=== PATIENT | female | born 1955 | race Caucasian/White ===

== ENCOUNTER 2019-04-28 12:15 | Inpatient (IN) | payer MEDICAID, MEDICARE ==
[~2019-04-28] VITALS: Ht 172.7 cm; Wt 62.6 kg
[2019-04-28] MEDS ORDERED: ASCO500P18 PO (12:44)
[2019-04-28] MEDS ORDERED: POLY17PO4 PO (12:44)
[2019-04-28] MEDS ORDERED: MULT1TAB73 PO (12:44)
[2019-04-28] MEDS ORDERED: MAGN400T40 PO (12:44)
[2019-04-28] MEDS ORDERED: SENN-175 PO (12:44)
[2019-04-28] MEDS ORDERED: GABA-532 PO (12:44)
[2019-04-28] MEDS ORDERED: SODI100G3 MC (12:44)
[2019-04-28] MEDS ORDERED: MIDO5TAB PO (12:44)
[2019-04-28] MEDS ORDERED: IV NORMAL SALINE 1000 ML BAG IV ONE (12:45)
[2019-04-28 12:54] LABS: BASOPHILS # (AUTO) 0.1 K/uL (0.0-8.0); BASOPHILS % (AUTO) 1.9 % (0.0-2.0); EOSINOPHILS # (AUTO) 0.1 K/uL (0.0-0.7); EOSINOPHILS % (AUTO) 1.8 % (0.0-7.0); HEMOGLOBIN 10.3 g/dL (10.9-14.3); LYMPHOCYTES # (AUTO) 2.4 K/uL (20.0-40.0); LYMPHOCYTES % (AUTO) 38.6 % (20.5-51.5); MEAN CORPUSCULAR HGB CONC 33 g/dL (32.3-35.6); MEAN CORPUSCULAR VOLUME 90.4 fL (75.5-95.3); MONOCYTES # (AUTO) 0.6 K/uL (2.0-10.0); MONOCYTES % (AUTO) 10.1 % (0.0-11.0); NEUTROPHILS # (AUTO) 2.9 K/uL (1.8-8.9); NEUTROPHILS % (AUTO) 47.6 % (38.5-71.5); PLATELET COUNT (AUTO) 409 K/uL (179-408); RED BLOOD CELL COUNT(AUTO) 3.43 MIL/uL (3.63-4.92); WHITE BLOOD COUNT (AUTO) 6.2 K/uL (3.8-11.8)
[2019-04-28 13:02] LABS: CREATININE 0.7 mg/dL (0.6-1.3); POTASSIUM 4.5 mmol/L (3.5-5.1)
[2019-04-28 13:08] LABS: BILIRUBIN,DIRECT 0.2 mg/dL (0.0-0.2); BILIRUBIN,TOTAL 0.4 mg/dL (0.2-1.0); TOTAL PROTEIN, SERUM 6.3 g/dL (6.4-8.2)
[2019-04-28] MEDS ORDERED: PROC10TA13 PO (13:15)
[2019-04-28] MEDS ORDERED: PANT40TA4 PO (13:15)
[2019-04-28] MEDS ORDERED: MORP15TA PO (13:15)
[2019-04-28] MEDS ORDERED: NITR0.4T48 SL (13:15)
[2019-04-28] MEDS ORDERED: SUCR1TAB PO (13:15)
[2019-04-28] MEDS ORDERED: BISA10SU61 RC (13:15)
[2019-04-28] MEDS ORDERED: LEVO112T5 PO (13:15)
[2019-04-28] MEDS ORDERED: ONDA4TAB5 PO (13:15)
[2019-04-28] MEDS ORDERED: ALBU2.5V38 IH (13:15)
[2019-04-28] MEDS ORDERED: HYDR-3326 PO (13:15)
[2019-04-28] MEDS ORDERED: FERR325T30 PO (13:15)
[2019-04-28] MEDS ORDERED: LORA1TAB PO (13:15)
[2019-04-28] MEDS ORDERED: [UNRECOGNIZED DRUG - OTHER] RC (13:15)
--- NOTE | 2019-04-28 13:26 | NUR ---
Call placed to [facility], Dr. Gallardo has been paged.
--- NOTE | 2019-04-28 13:44 | NUR ---
Patient is resting comfortably on gurney while watching bedside TV. NPO maintained, no acute change in condition seen.
[2019-04-28] MEDS ORDERED: SWABABLE VALVE TRANSFER SET EA MC ONE (14:06)
[2019-04-28] MEDS ORDERED: IV NORMAL SALINE 250 ML IV ONE (14:06)
[2019-04-28] MEDS ORDERED: IOHEXOL 300MG/ML 100 ML INFUS..BTL ONE (14:06)
--- NOTE | 2019-04-28 14:09 | NUR ---
"We are waiting for insurance authorization." per Le, the ER registration staff.
[2019-04-28] MEDS ORDERED: LORAZEPAM 1 MG TABLET PO PRN (14:30)
[2019-04-28] MEDS ORDERED: ALBUTEROL SULFATE 2.5 MG/3 ML NEBU IH PRN (14:30)
[2019-04-28] MEDS ORDERED: NITROGLYCERIN 0.4 MG/TAB BOTTLE SL SCH (14:30)
[2019-04-28] MEDS ORDERED: PROCHLORPERAZINE MALEATE 10 MG TABLET PO PRN (14:30)
[2019-04-28] MEDS ORDERED: BISACODYL 10 MG SUPP.RECT RC PRN (14:30)
[2019-04-28] MEDS ORDERED: ONDANSETRON 4 MG/2 ML VIAL IV PRN (14:30)
[2019-04-28] MEDS ORDERED: HYDROCODONE/APAP 5-325MG TABLET PO PRN (14:30)
--- NOTE | 2019-04-28 15:28 | NUR ---
No actual vomiting seen, patient is resting comfortably on gurney, and at the same time, she is watching bedside TV, still for insurance authorization for admission.
--- NOTE | 2019-04-28 15:50 | NUR ---
Diaper change done, still waiting for insurance authrorization, patient is c/o joint pains, notified.
[2019-04-28] MEDS ORDERED: MORPHINE SULFATE 2 MG/1 ML DISP.SYRIN ONE (15:56)
[2019-04-28] MEDS: GABAPENTIN 100 MG CAPSULE PO SCH ×2 (16:23→21:23)
--- NOTE | 2019-04-28 16:23 | NUR ---
NPO for now 2/2 dysphagia diagnosis. All po tabs/capsules are on HOLD for now until formal swallow evaluation is done
[2019-04-28] MEDS ORDERED: MORPHINE SULFATE 2 MG/1 ML DISP.SYRIN IV ONE (16:30)
[2019-04-28] MEDS: SUCRALFATE 1 G TABLET PO SCH ×2 (16:30→21:00)
[2019-04-28] MEDS: MIRALAX 17 GM POWD.PACK PO SCH (17:00)
[2019-04-28] MEDS ORDERED: NITROGLYCERIN 0.4 MG/TAB BOTTLE SL PRN (17:00)
[2019-04-28] MEDS: MIDODRINE HCL 5 MG TABLET PO SCH (17:00)
[2019-04-28 17:11] VITALS: BP 154/88
[2019-04-28] MEDS: KETOROLAC TROMETHAMINE 30 MG INJ IM PRN (18:32)
--- NOTE | 2019-04-28 19:30 | NUR ---
RECEIVED PT AWAKE, ALERT AND ORIENTEDX4. PT SHOWS NO SIGNS OF ACUTE DISTRESS. IV INTACT. CALL LIGHT WITHIN REACH. SAFETY AND COMFORT PROVIDED. WILL CONTINUE TO MONITOR.
[2019-04-28 20:00] VITALS: BP 139/88
[2019-04-28] MEDS: SENNOSIDES 1 TABLET PO SCH (21:00)
[2019-04-29] MEDS: IV NS 1000 ML 1,000 ML IV PRN ×2 (03:37→22:06)
[2019-04-29 05:19] VITALS: BP 148/88
[2019-04-29] MEDS: GABAPENTIN 100 MG CAPSULE PO SCH ×3 (06:00→22:00)
[2019-04-29] MEDS: KETOROLAC TROMETHAMINE 30 MG INJ IM PRN (06:04)
--- NOTE | 2019-04-29 06:22 | NUR ---
THE LEFT KNEE OF THE PT IS BIGGER THAN HER RIGHT KNEE. PT STABLE .WILL CONTINUE TO MONITOR.
--- NOTE | 2019-04-29 06:22 | NUR ---
PT TURNED AND REPOSITIONED. PT STABLE. WILL CONTINUE TO MONITOR.
--- NOTE | 2019-04-29 06:23 | NUR ---
PT SLEPT INTERMITTENTLY. PT SHOWS NO SIGNS OF ACUTE DISTRESS. TORADOL GIVEN FOR HER PAIN ON HER KNEES. PT TOLERATED IT WELL. PT NPO SO MEDS WERE NOT ADMINISTERED. PRESCRIBED MEDICATION GIVEN AND PT TOLERATED IT WELL. SAFETY AND COMFORT PROVIDED. ALL NEEDS ARE MET. WILL ENDORSE ACCORDINGLY TO INCOMING NURSE FOR CONTINUITY OF CARE.
[2019-04-29] MEDS: PANTOPRAZOLE SODIUM 40 MG TABLET.DR PO SCH (06:34)
[2019-04-29] MEDS: LEVOTHYROXINE SODIUM 112 MCG TABLET PO SCH (06:34)
[2019-04-29] MEDS: SUCRALFATE 1 G TABLET PO SCH ×4 (06:34→20:00)
[2019-04-29 06:55] LABS: CREATININE 0.7 mg/dL (0.6-1.3); PHOSPHOROUS 5.1 mg/dL (2.5-4.9); POTASSIUM 4.3 mmol/L (3.5-5.1)
[2019-04-29 06:57] LABS: MAGNESIUM 1.2 mg/dL (1.8-2.4)
[2019-04-29 07:00] LABS: THYROID STIMULATING HORMONE 0.84 mIU/mL (0.358-3.740)
--- NOTE | 2019-04-29 07:00 | NUR ---
0656h received critical lab of mg 1.2 from pavan. notify fashion styling intern and charge nurse. endorse to dayshift nurse regarding critical lab of mg 1.2. pt stable.
[2019-04-29 07:08] LABS: BASOPHILS # (AUTO) 0.1 K/uL (0.0-8.0); BASOPHILS % (AUTO) 1.4 % (0.0-2.0); EOSINOPHILS # (AUTO) 0.1 K/uL (0.0-0.7); EOSINOPHILS % (AUTO) 2.9 % (0.0-7.0); HEMATOCRIT 28.2 % (31.2-41.9); HEMOGLOBIN 9.7 g/dL (10.9-14.3); LYMPHOCYTES % (AUTO) 46.6 % (20.5-51.5); MEAN CORPUSCULAR HEMOGLOBIN 31.2 uug (24.7-32.8); MEAN CORPUSCULAR HGB CONC 35 g/dL (32.3-35.6); MEAN CORPUSCULAR VOLUME 90.6 fL (75.5-95.3); MONOCYTES # (AUTO) 0.5 K/uL (2.0-10.0); MONOCYTES % (AUTO) 10.8 % (0.0-11.0); NEUTROPHILS # (AUTO) 1.7 K/uL (1.8-8.9); NEUTROPHILS % (AUTO) 38.3 % (38.5-71.5); PLATELET COUNT (AUTO) 352 K/uL (179-408); RED BLOOD CELL COUNT(AUTO) 3.11 MIL/uL (3.63-4.92)
[2019-04-29 07:11] LABS: WHITE BLOOD COUNT (AUTO) 4.4 K/uL (3.8-11.8)
--- NOTE | 2019-04-29 07:30 | NUR ---
Patient calm and comfortable with no signs of distress; call light with in reach , safety devices in place.
[2019-04-29] MEDS ORDERED: Z GUARD REMEDY PASTE 57 GM TUBE TOP PRN (08:00)
[2019-04-29] MEDS ORDERED: IV NORMAL SALINE 1000 ML BAG IV ONE (08:21)
[2019-04-29] MEDS ORDERED: IRR STERIL WATER FOR IRR 1000 ML BOTTLE IR ONE (08:21)
[2019-04-29] MEDS ORDERED: LIDOCAINE-MPF 2% 5 ML VIAL MC ONE (08:21)
[2019-04-29] MEDS ORDERED: PROPOFOL 200 MG/20 ML BOTTLE IV ONE (08:21)
[2019-04-29] MEDS: MIDODRINE HCL 5 MG TABLET PO SCH ×3 (08:55→17:00)
[2019-04-29] MEDS: MIRALAX 17 GM POWD.PACK PO SCH ×2 (08:55→17:12)
[2019-04-29 11:33] VITALS: BP 134/84
[2019-04-29] MEDS: MAGNESIUM SULFATE/D5W 100 ML IV SCH ×3 (11:54→14:48)
[2019-04-29 15:29] VITALS: BP 132/70
--- NOTE | 2019-04-29 19:20 | NUR ---
Patient calm and comfortable with no signs of distress; patient call light with in reach; safety devies in place.
--- NOTE | 2019-04-29 19:30 | NUR ---
RECEIVED PT AWAKE, ALERT AND ORIENTEDX4. PT SHOWS NO SIGNS FO ACUTE DISTRESS. IV INTACT. SAFETY AND COMFORT PROVIDED. WILL CONTINUE TO MONITOR.
[2019-04-29] MEDS: SENNOSIDES 1 TABLET PO SCH (20:00)
[2019-04-29 21:01] VITALS: BP 124/77
[2019-04-30 05:11] VITALS: BP 150/97
--- NOTE | 2019-04-30 05:49 | NUR ---
PT SLEPT INTERMITTENTLY. PT SHOWS NO SIGNS OF ACUTE DISTRESS. PT COOPERATIVE WITH CARE. PT TURNED AND REPOSITIONED. IV INTACT. PRESCRIBED MEDICATION GIVEN AND PT TOLERATED IT WELL. SAFETY AND COMFORT PROVIDED. WILL ENDORSE TO INCOMING NURSE FOR CONTINUITY OF CARE.
[2019-04-30] MEDS: LEVOTHYROXINE SODIUM 112 MCG TABLET PO SCH (06:01)
[2019-04-30] MEDS: PANTOPRAZOLE SODIUM 40 MG TABLET.DR PO SCH (06:01)
[2019-04-30] MEDS: GABAPENTIN 100 MG CAPSULE PO SCH ×3 (06:02→20:23)
[2019-04-30] MEDS: SUCRALFATE 1 G TABLET PO SCH ×4 (06:31→20:22)
[2019-04-30 06:39] VITALS: BP 138/78
[2019-04-30 08:00] VITALS: BP 148/88
[2019-04-30] MEDS: MIDODRINE HCL 5 MG TABLET PO SCH ×3 (09:00→17:00)
[2019-04-30] MEDS: MIRALAX 17 GM POWD.PACK PO SCH ×2 (09:26→17:00)
[2019-04-30 11:42] VITALS: BP 159/92
[2019-04-30 11:58] LABS: BASOPHILS # (AUTO) 0.1 K/uL (0.0-8.0); BASOPHILS % (AUTO) 1.9 % (0.0-2.0); EOSINOPHILS # (AUTO) 0.2 K/uL (0.0-0.7); EOSINOPHILS % (AUTO) 3.2 % (0.0-7.0); HEMATOCRIT 27.4 % (31.2-41.9); HEMOGLOBIN 9.2 g/dL (10.9-14.3); LYMPHOCYTES # (AUTO) 2.1 K/uL (20.0-40.0); LYMPHOCYTES % (AUTO) 41.4 % (20.5-51.5); MEAN CORPUSCULAR HEMOGLOBIN 30.4 uug (24.7-32.8); MEAN CORPUSCULAR HGB CONC 34 g/dL (32.3-35.6); MEAN CORPUSCULAR VOLUME 90.6 fL (75.5-95.3); MONOCYTES # (AUTO) 0.5 K/uL (2.0-10.0); MONOCYTES % (AUTO) 9.7 % (0.0-11.0); NEUTROPHILS # (AUTO) 2.3 K/uL (1.8-8.9); NEUTROPHILS % (AUTO) 43.8 % (38.5-71.5); PLATELET COUNT (AUTO) 391 K/uL (179-408); RED BLOOD CELL COUNT(AUTO) 3.03 MIL/uL (3.63-4.92); WHITE BLOOD COUNT (AUTO) 5.2 K/uL (3.8-11.8)
[2019-04-30 12:04] LABS: CARBON DIOXIDE 21 mmol/L (21-32); CHLORIDE 107 mmol/L (98-107); CREATININE 0.7 mg/dL (0.6-1.3); GLUCOSE 89 mg/dL (74-106); POTASSIUM 3.6 mmol/L (3.5-5.1); UREA NITROGEN, BLOOD 5 mg/dL (7-18)
[2019-04-30 12:10] LABS: ALANINE AMINOTRANSFERASE < 6 U/L (14-59); ALKALINE PHOSPHATASE 124 U/L (50-136); ASPARTATE AMINOTRANSFERASE 10 U/L (15-37); BILIRUBIN,TOTAL 0.3 mg/dL (0.2-1.0); MAGNESIUM 1.5 mg/dL (1.8-2.4); PHOSPHOROUS 4.1 mg/dL (2.5-4.9); TOTAL PROTEIN, SERUM 5.5 g/dL (6.4-8.2)
[2019-04-30 12:17] LABS: IRON, SERUM 49 ug/dL (50-175)
[2019-04-30] MEDS ORDERED: MAGNESIUM OXIDE 400 MG TABLET PO ONE (12:30)
[2019-04-30] MEDS: MAGNESIUM SULFATE/D5W 100 ML IV SCH ×3 (14:40→16:59)
[2019-04-30 15:36] VITALS: BP 150/84
--- NOTE | 2019-04-30 19:20 | NUR ---
RECEIVED PT AWAKE, ALERT AND ORIENTEDX4. PT SHOWS NO SIGNS OF ACUTE DISTRESS. IV INTACT. SAFETY AND COMFORT PROVIDED. CALL LIGHT WITHIN REACH. WILL CONTINUE TO MONITOR.
--- NOTE | 2019-04-30 19:30 | NUR ---
Calm and cooperative. No c/o pain. spoke with pt regarding POLST on chart stating DNR but pt stated that she knows nothing about POLST and wants to be FULL Code. Notified Dr Sharif and stated he is only covering at this time. shift mgr RN aware and will follow up. Notified pt and Dr Sharif of MRSA nares positive and orders for bactroban received. will cont to monitor.
[2019-04-30 20:20] VITALS: BP 134/81
[2019-04-30] MEDS: MUPIROCIN 2% OINT 22 GM TUBE NS SCH (20:22)
[2019-04-30] MEDS: SENNOSIDES 1 TABLET PO SCH (20:24)
[2019-04-30] MEDS: KETOROLAC TROMETHAMINE 30 MG INJ IM PRN (20:36)
[2019-04-30] MEDS: IV NS 1000 ML 1,000 ML IV PRN (20:37)
[2019-05-01 05:18] VITALS: BP 129/87
[2019-05-01] MEDS: LEVOTHYROXINE SODIUM 112 MCG TABLET PO SCH (06:06)
[2019-05-01] MEDS: GABAPENTIN 100 MG CAPSULE PO SCH ×2 (06:06→13:21)
[2019-05-01] MEDS: PANTOPRAZOLE SODIUM 40 MG TABLET.DR PO SCH (06:06)
[2019-05-01 06:15] LABS: BASOPHILS # (AUTO) 0.1 K/uL (0.0-8.0); BASOPHILS % (AUTO) 1.2 % (0.0-2.0); EOSINOPHILS # (AUTO) 0.2 K/uL (0.0-0.7); EOSINOPHILS % (AUTO) 4.1 % (0.0-7.0); HEMATOCRIT 29.7 % (31.2-41.9); HEMOGLOBIN 10.1 g/dL (10.9-14.3); LYMPHOCYTES # (AUTO) 2.1 K/uL (20.0-40.0); LYMPHOCYTES % (AUTO) 44.3 % (20.5-51.5); MEAN CORPUSCULAR HEMOGLOBIN 30.1 uug (24.7-32.8); MEAN CORPUSCULAR HGB CONC 34 g/dL (32.3-35.6); MEAN CORPUSCULAR VOLUME 88.4 fL (75.5-95.3); MONOCYTES # (AUTO) 0.5 K/uL (2.0-10.0); MONOCYTES % (AUTO) 10.5 % (0.0-11.0); NEUTROPHILS # (AUTO) 1.9 K/uL (1.8-8.9); NEUTROPHILS % (AUTO) 39.9 % (38.5-71.5); PLATELET COUNT (AUTO) 447 K/uL (179-408); RED BLOOD CELL COUNT(AUTO) 3.36 MIL/uL (3.63-4.92); WHITE BLOOD COUNT (AUTO) 4.7 K/uL (3.8-11.8)
--- NOTE | 2019-05-01 06:24 | NUR ---
PT SLEPT THROUGHOUT THE SHIFT. PT SHOWS NO ACUTE DISTRESS. PRESCRIBED MEDICATION GIVEN AND PT TOLERATED IT WELL. IV INTACT. PT GIVEN TORADOL AT 2036H FOR PAIN ON HER KNEES. PT PAIN IMPROVED AFTER 2 HOURS.SAFETY AND COMFORT PROVIDED. ALL NEEDS ARE MET. WILL ENDORSE ACCORDINGLY TO INCOMING NURSE FOR CONTINUITY OF CARE.
[2019-05-01] MEDS: SUCRALFATE 1 G TABLET PO SCH ×3 (06:32→16:49)
[2019-05-01 06:42] LABS: BILIRUBIN,TOTAL 0.3 mg/dL (0.2-1.0); CREATININE 0.7 mg/dL (0.6-1.3); MAGNESIUM 1.7 mg/dL (1.8-2.4); PHOSPHOROUS 4.4 mg/dL (2.5-4.9); POTASSIUM 3.7 mmol/L (3.5-5.1); TOTAL PROTEIN, SERUM 5.9 g/dL (6.4-8.2)
[2019-05-01] MEDS: MIRALAX 17 GM POWD.PACK PO SCH ×2 (08:07→16:29)
[2019-05-01] MEDS: MIDODRINE HCL 5 MG TABLET PO SCH ×3 (08:07→16:29)
[2019-05-01] MEDS: MUPIROCIN 2% OINT 22 GM TUBE NS SCH (08:42)
[2019-05-01] MEDS: IV NS 1000 ML 1,000 ML IV PRN (09:49)
[2019-05-01 11:22] VITALS: BP 148/91
[2019-05-01] MEDS ORDERED: PANT40TA2 PO (14:10)
[2019-05-01] MEDS ORDERED: MAGNESIUM OXIDE 400 MG TABLET PO ONE (14:30)
[2019-05-01 15:38] VITALS: BP 154/91
[2019-05-01 16:29] VITALS: BP 154/91
--- NOTE | 2019-05-01 18:35 | NUR ---
dc orders received noted and carried out,dc instruction and rn report given to the [facility] ,belen portillo per orders,pt left the facility via ambulance in stable condition.
== END 2019-05-01 18:45 | DRG 243 ==
LOC: ER 12:15 → MEDSURG3 16:36
PROC: 0DB58ZX Excision of Esophagus, Via Natural or Artificial Opening Endoscopic, Diagnostic (ICD-10-PCS; principal; 2019-04-29)
PROC: 0D758ZZ Dilation of Esophagus, Via Natural or Artificial Opening Endoscopic (ICD-10-PCS; principal; 2019-04-29)
DX: K21.0 Gastro-esophageal reflux disease with esophagitis (principal); E43 Unspecified severe protein-calorie malnutrition; K85.90 Acute pancreatitis without necrosis or infection, unspecified; K22.2 Esophageal obstruction; R13.10 Dysphagia, unspecified; K44.9 Diaphragmatic hernia without obstruction or gangrene; E03.9 Hypothyroidism, unspecified; Z79.890 Hormone replacement therapy; D64.9 Anemia, unspecified; Z68.21 Body mass index [BMI] 21.0-21.9, adult; J45.909 Unspecified asthma, uncomplicated; Z86.718 Personal history of other venous thrombosis and embolism; Q40.3 Congenital malformation of stomach, unspecified
CPT/HCPCS: 36415; 71045; 71260; 82378; 83550; 83605; 83690; 83735; 84100; 84443; 85025; A4217; A4663; G0378; J1885; J2270; J3475; J3490; J7030; J7050; Q0164; Q9967